=== PATIENT | male | born 1940 | race Caucasian/White ===

== ENCOUNTER 2018-11-12 10:53 | Emergency (ER) | payer OTHER, SELFPAY ==
--- NOTE | 2018-11-12 11:27 | RAD ---
XR Knee Rt 4 View STANDARD History: Pain Comparison: None. Findings: Mild medial compartment joint space narrowing. Large joint effusion. High concern for a non displaced transversely oriented fracture of the patella, nondisplaced, and less likely bipartite patella. Moderate pretibial soft tissue swelling. Impression: 1. High concern for transversely oriented fracture of the patella versus less likely bipartite supero medial patella. Large joint effusion corroborates this. Correlation with focal tenderness recommended. 2. Medial compartment joint space narrowing with osteophyte formation and subcortical sclerosis.
== END 2018-11-12 13:27 | disposition home or self-care (01) ==
LOC: ERS 10:53
DX: S82.001A Unspecified fracture of right patella, initial encounter for closed fracture (principal); E78.5 Hyperlipidemia, unspecified; Z79.899 Other long term (current) drug therapy; W01.198A Fall on same level from slipping, tripping and stumbling with subsequent striking against other object, initial encounter

== ENCOUNTER 2019-04-08 14:30 | Outpatient (CLI) | payer BC ==
--- NOTE | 2019-04-08 14:52 | RAD ---
XR Knee Lt 4 View STANDARD: 04/08/2019 12:00 AM CLINICAL INDICATION: Left knee pain COMPARISON: None. FINDINGS: Bones: No acute fracture is demonstrated. Joints: There is a left total knee prosthesis that projects in the expected position. Soft Tissue: There is soft tissue swelling involving the anterior aspect of the left knee.. IMPRESSION: Left total knee prosthesis without overt evidence of constipation. Soft tissue swelling involving the anterior left knee. This may reflect soft tissue contusion..
== END 2019-04-08 14:31 | disposition home or self-care (01) ==
LOC: RAD 14:30
PROVIDERS: ATTEND Nurse Practitioner Family
DX: M25.562 Pain in left knee (principal); Z96.652 Presence of left artificial knee joint; M79.89 Other specified soft tissue disorders